=== PATIENT | male | born 1990 | race African-American/Black ===

== ENCOUNTER 2017-11-17 17:53 | Emergency (ER) | payer SELFPAY ==
[~2017-11-17] VITALS: Ht 177.8 cm; Wt 68.0 kg
[2017-11-17 18:03] VITALS: BP 99/62
--- NOTE | 2017-11-17 18:58 | Emergency Room Report ---
History of Present Illness General Chief Complaint: Overdose Source: Patient Present Illness HPI 27 yo male patient presents to ER BIB ambulance and girlfriend complaining of vomiting. Gf reports patient ate marijuana edible and began vomiting later. Reports no hx of similar symptoms. Reports no diarrhea or abdominal pain. Denies blood in vomit Denies chest pain, SOB, fever. Denies hitting head, LOC. Allergies: Coded Allergies: No Known Allergies (Unverified , 11/17/17) Patient History Past Medical History: see triage record Reviewed Nursing Documentation: PMH: Agreed; PSxH: Agreed Nursing Documentation-PMH Past Medical History: No Stated History Review of Systems All Other Systems: negative except mentioned in HPI Physical Exam Vital Signs Date Time Temp Pulse Resp B/P (MAP) Pulse Ox O2 Delivery O2 Flow Rate FiO2 11/17/17 17:53 97.8 90 18 122/72 98 Room Air 97.9 Sp02 EP Interpretation: reviewed, normal General Appearance: well appearing, no apparent distress, alert, GCS 15, non- toxic Head: normocephalic, atraumatic ENT: hearing grossly normal, normal pharynx, no angioedema, normal voice, uvula midline, moist mucus membranes Neck: full range of motion Respiratory: lungs clear, normal breath sounds, no rhonchi, no respiratory distress, no accessory muscle use, no wheezing, speaking full sentences Cardiovascular #1: regular rate, rhythm, no edema Gastrointestinal: non tender, soft, no mass, non-distended, no guarding, no rebound, other - negative Rovsing, negative Sarmiento Genitourinary: no CVA tenderness Musculoskeletal: back normal, digits/nails normal, gait/station normal, normal range of motion, non-tender Neurologic: alert, oriented x3, responsive, motor strength/tone normal, sensory intact Psychiatric: mood/affect normal Skin: no rash Medical Decision Making PA Attestation Dr. Adams is my supervising Physician whom patient management has been discussed with. Diagnostic Impression: Primary Impression: Vomiting ER Course Pt. presents to the ED c/o vomiting. Ddx considered but are not limited to gastritis, viral syndrome, food poisoning , marijuana use. Vital signs: are WNL, pt. is afebrile ORDERS: none required at this time, the diagnosis is clinical ED INTERVENTIONS: PE benign, no abdominal pain, lungs clear to auscultation. Patient resting comfortably and sleeping during stay in ER. Zofran provided to patient. Patient reports feeling better following administration of medication. Patient able to tolerate PO fluids at this time. Patient nontoxic appearing, alert and oriented, able to ambulate independently. Informed patient symptoms likely related to marijuana use. Don't use marijuana. Patient does not require abx at this time; afebrile, no recent travel, no blood in stool. Return to ER if symptoms return or worsen. Drink fluids as tolerated to prevent dehydration. DISCHARGE No Rx required at this time. At this time pt is stable for d/c to home. Patient is resting comfortably, in no acute distress, nontoxic appearing, talking without difficulty. Patient to take medications as instructed Will provide with patient care instructions and any necessary prescriptions. Care plan and follow-up instructions provided. Patient instructed to follow-up with primary care provider in 3 - 5 days. Patient questions asked and answered. Patient reports understanding and agreement to treatment plan. ER precautions given. Patient instructed to return to ER immediately for any new or worsening of symptoms including but not limited to increasing SOB, persistent fever, intractable vomiting. Last Vital Signs Date Time Temp Pulse Resp B/P (MAP) Pulse Ox O2 Delivery O2 Flow Rate FiO2 11/17/17 18:03 101 18 Room Air 11/17/17 18:03 97.9 99/62 98 97.9 Disposition: HOME, SELF-CARE Condition: Stable Scripts No Active Prescriptions or Reported Meds Patient Instructions: Cannabis Use Disorder, Nausea and Vomiting, Adult, Easy- to-Read, OVERDOSE, Opiate Additional Instructions: Followup with primary care provider in 3 -5 days. Don't use marijuana. BRAT diet: bananas, rice, apple sauce, toast. Take medications as directed. Patient questions asked and answered. ER precautions given, patient instructed to return to ER immediately for any new or worsening of symptoms. Wallace Pedersen Nov 17, 2017 18:58
[2017-11-17 22:00] VITALS: BP 116/67
== END 2017-11-17 22:00 | disposition home or self-care (01) ==
LOC: EDBD 17:53 → EMR 19:34
DX: R11.10 Vomiting, unspecified (principal)
CPT/HCPCS: 99282